=== PATIENT | female | born 1940 | race Caucasian/White ===

== ENCOUNTER 2020-02-26 11:40 | Emergency (ER) | payer OTHER, SELFPAY ==
[2020-02-26 13:35] VITALS: BP 150/74
== END 2020-02-26 13:35 | disposition home or self-care (01) ==
LOC: ED 11:40
DX: U07.1 COVID-19 (principal); B34.9 Viral infection, unspecified; Z88.5 Allergy status to narcotic agent
CPT/HCPCS: U0003